=== PATIENT | female | born 1980 | race African-American/Black ===

== ENCOUNTER 2016-10-18 16:44 | Emergency (ER) | payer BC, MEDICAID ==
[~2016-10-18] VITALS: Ht 160 cm; Wt 66.4 kg
[2016-10-18 17:04] VITALS: BP 101/68
[2016-10-18] MEDS ORDERED: SODIUM CHLORIDE FLUSH 10ML SYR IVF ONE (17:30)
[2016-10-18] MEDS ORDERED: SODIUM CHLORIDE 0.9% 1,000ML IV ONE (17:30)
[2016-10-18 17:40] LABS: ASPARTATE AMINO TRANSFERASE 14 U/L (15-37); BLOOD UREA NITROGEN 7 mg/dL (7-18)
[2016-10-18 17:43] LABS: PATH.CAST-FLAG NOT PRESENT; SPERM-FLAG NOT PRESENT; SRC-FLAG NOT PRESENT; XTAL-FLAG NOT PRESENT; YLC-FLAG NOT PRESENT
[2016-10-18 17:44] LABS: HCG UR OBC PASS
== END 2016-10-18 18:32 | disposition home or self-care (01) ==
LOC: ED 17:37
DX: K59.00 Constipation, unspecified (principal); K21.9 Gastro-esophageal reflux disease without esophagitis
CPT/HCPCS: 36415; 74000; 80053; 80061; 81001; 81025; 83690; 85025; 87086; 99285